=== PATIENT | female | born 1995 | race Hispanic/Latino ===

== ENCOUNTER 2017-03-12 14:30 | Emergency (ER) | payer MEDICAID, OTHER ==
[2017-03-12 15:46] LABS: Basophils % (Auto) 0.4 % (0.0-1.8); Eosinophils % (Auto) 3.3 % (0.0-4.3); Hemoglobin 13.4 gm/dl (10.1-14.3); Mean Corpuscular HGB Conc 34 % (30-34); Mean Corpuscular Hemoglobin 29 pg (28-32); Mean Corpuscular Volume 86 fl (79-97); Platelet Count 303 K/mm3 (140-440); Red Blood Count 4.64 M/mm3 (3.65-5.03); Red Cell Distribution Width 13.6 % (13.2-15.2); White Blood Count 10.3 K/mm3 (4.5-11.0)
[2017-03-12 16:03] LABS: Bilirubin,Urine NEG (Negative); Blood,Urine LG (Negative); Ketones,Urine NEG (Negative); Leukocyte Esterase,Urine SM (Negative); Mucus,Urine FEW /HPF; Nitrite,Urine NEG (Negative); Protein,Urine <15 mg/dL mg/dL (Negative); Urobilinogen,Urine < 2.0 mg/dL (<2.0)
[2017-03-12 16:49] LABS: Alanine Aminotransferase 8 units/L (7-56); Albumin/Globulin Ratio 1.3 %; Alkaline Phosphatase 82 units/L (35-129); Anion Gap 17 mmol/L; Blood Urea Nitrogen 7 mg/dL (7-17); Carbon Dioxide 25 mmol/L (22-30); Chloride 100.1 mmol/L (98-107); Sodium 138 mmol/L (137-145)
[2017-03-12 17:03] LABS: Glucose 84 mg/dL (65-100)
--- NOTE | 2017-03-12 20:53 | Ultrasound Report ---
FINAL REPORT PROCEDURE: US OB \T\lt; = 14 WEEKS FETUS TECHNIQUE: Real-time transabdominal sonography of the uterus, placenta, amniotic fluid, adnexa, and fetus was performed with image documentation. Measurements were obtained to determine age/size. M-mode Doppler was used to document heartbeat. CPT 23528 HISTORY: vaginal bleeding during COMPARISON: No prior studies are available for comparison. FINDINGS: CRL: 27.3 mm, which corresponds to a gestational age of: 9 weeks, 4 days. Yolk Sac: Normal. Embryonic Cardiac Activity: No cardiac activity is visualized Gestational Sac: Normal. Amniotic fluid: Normal. Cervix: Normal. Right Ovary: Normal. Left Ovary: Normal. Uterus and adnexa: Normal. IMPRESSION: Single intrauterine gestation corresponding to a mean gestational age of 9 weeks and 4 days. No cardiac activity is identified consistent with intrauterine demise.
--- NOTE | 2017-03-12 20:54 | Ultrasound Report ---
FINAL REPORT PROCEDURE: US OB TRANSVAGINAL TECHNIQUE: Real-time transvaginal sonography of the uterus, placenta, amniotic fluid, adnexa, and fetus was performed with image documentation. Measurements were obtained to determine age/size. M-mode Doppler was used to document heartbeat. CPT 19001 HISTORY: vaginal bleeding during COMPARISON: No prior studies are available for comparison. FINDINGS: CRL: 27.2mm, which corresponds to a gestational age of: 9weeks, 4 days. Yolk Sac: Normal. Embryonic Cardiac Activity: No cardiac activity is visualized Gestational Sac: Normal. Right Ovary: Normal. Left Ovary: Normal. IMPRESSION: Single intrauterine gestation is noted corresponding to 9 weeks and 4 days of gestational age. However there is no cardiac activity consistent with the intrauterine demise.
--- NOTE | 2017-03-12 21:03 | Emergency Department Report ---
ED Female HPI - General Chief complaint: Vaginal Bleeding Stated complaint: VAG BLEEDING/12WKS PREG Time Seen by Provider: 03/12/17 20:43 Source: patient, RN notes reviewed Mode of arrival: Ambulatory Limitations: No Limitations - History of Present Illness Initial comments: This is a 21-year-old female. She is previously unknown to me. She is 2, para 1. 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 Her complaint at that time was abdominal cramping, vaginal bleeding. The patient presents to the er with persistent abdominal cramping and vaginal bleeding. She reports one pad per hour. Minimal bleeding. No headache, neck pain, chest pain, shortness of breath, no irritative/obstructive urinary symptoms. No exacerbating or relieving factors. MD Complaint: vaginal bleeding, pelvic pain -: Gradual, days(s) Location: suprapubic Radiation: non-radiating Severity: mild Quality: cramping Consistency: intermittent Improves with: none Worsens with: none Are you Now?: Yes Associated Symptoms: vaginal discharge, abdominal pain. denies: nausea/vomiting , fever/chills - Related Data Sexually active: Yes Home Medications Medication Instructions Recorded Confirmed Last Taken Loratadine [Claritin] 10 mg PO DAILY PRN 11/26/15 11/29/15 11/24/15 09:00 1 Allergies Allergy/AdvReac Type Severity Reaction Status Date / Time No Known Allergies Allergy Verified 11/26/15 13:47 ED Review of Systems ROS: Stated complaint: VAG BLEEDING/12WKS PREG Other details as noted in HPI Constitutional: denies: fever, malaise Eyes: denies: vision change ENT: denies: epistaxis Respiratory: denies: cough Cardiovascular: denies: chest pain Gastrointestinal: denies: vomiting Genitourinary: abnormal menses. denies: dysuria Musculoskeletal: denies: myalgia Skin: denies: lesions Neurological: denies: weakness Psychiatric: anxiety ED Past Medical Hx - Past Medical History Hx Hypertension: No Hx Congestive Heart Failure: No Hx Diabetes: No Hx Deep Vein Thrombosis: No Hx Renal Disease: No Hx Sickle Cell Disease: No Hx Seizures: No Hx Asthma: No Hx COPD: No Hx HIV: No - Social History Smoking Status: Never Smoker Substance Use Type: None - Medications Home Medications: Home Medications Medication Instructions Recorded Confirmed Last Taken Type Loratadine [Claritin] 10 mg PO DAILY PRN 11/26/15 11/29/15 11/24/15 09:00 History 1 ED Physical Exam - General Limitations: No Limitations General appearance: alert, in no apparent distress - Head Head exam: Present: atraumatic, normocephalic - Eye Eye exam: Present: normal appearance, EOMI. Absent: nystagmus - ENT ENT exam: Present: normal exam, normal orophraynx, mucous membranes moist, normal external ear exam - Neck Neck exam: Present: normal inspection, full ROM. Absent: tenderness, meningismus - Respiratory Respiratory exam: Present: normal lung sounds bilaterally. Absent: respiratory distress, wheezes, rales, rhonchi, stridor, chest wall tenderness, accessory muscle use, decreased breath sounds, prolonged expiratory - Cardiovascular Cardiovascular Exam: Present: regular rate, normal rhythm, normal heart sounds. Absent: bradycardia, tachycardia, irregular rhythm, systolic murmur, diastolic murmur, rubs, gallop - GI/Abdominal GI/Abdominal exam: Present: soft, normal bowel sounds. Absent: distended, tenderness, guarding, rebound, rigid, pulsatile mass - Extremities Exam Extremities exam: Present: normal inspection, full ROM, normal capillary refill. Absent: tenderness, pedal edema, joint swelling, calf tenderness - Back Exam Back exam: Present: normal inspection, full ROM. Absent: tenderness, CVA tenderness (R), CVA tenderness (L), muscle spasm, paraspinal tenderness, vertebral tenderness - Neurological Exam Neurological exam: Present: alert, oriented X3, normal gait, other (Extraocular movements intact. Tongue midline. No facial droop. Facial sensation intact to light touch in the V1, V2, V3 distribution bilaterally. 5 and 5 strength in 4 extremities.. Sensation is intact to light touch in 4 extremities.). Absent : motor sensory deficit - Psychiatric Psychiatric exam: Present: normal affect, normal mood - Skin Skin exam: Present: warm, dry, intact, normal color. Absent: rash ED Course Vital Signs 03/12/17 03/12/17 03/12/17 14:45 20:25 20:49 Temperature 98.2 F 98.3 F Pulse Rate 96 H 81 Respiratory 20 16 Rate Blood Pressure 99/60 109/64 Blood Pressure 118/74 [Right] O2 Sat by Pulse 100 99 Oximetry 03/12/17 03/12/17 03/12/17 21:00 21:20 21:40 Temperature 97.9 F Pulse Rate 73 Respiratory 16 Rate Blood Pressure 121/63 107/64 Blood Pressure 111/62 [Right] O2 Sat by Pulse 98 98 99 Oximetry ED Medical Decision Making - Lab Data Result diagrams: 03/12/17 15:07 03/12/17 15:07 Vital Signs 03/12/17 03/12/17 03/12/17 14:45 20:25 20:49 Temperature 98.2 F 98.3 F Pulse Rate 96 H 81 Respiratory 20 16 Rate Blood Pressure 99/60 109/64 Blood Pressure 118/74 [Right] O2 Sat by Pulse 100 99 Oximetry 03/12/17 03/12/17 21:00 21:20 Temperature Pulse Rate Respiratory Rate Blood Pressure 121/63 107/64 Blood Pressure [Right] O2 Sat by Pulse 98 98 Oximetry Lab Results 03/12/17 03/12/17 03/12/17 Range/Units 14:52 15:07 15:07 WBC 10.3 (4.5-11.0) K/mm3 RBC 4.64 (3.65-5.03) M/mm3 Hgb 13.4 (10.1-14.3) gm/dl Hct 40.0 (30.3-42.9) % MCV 86 (79-97) fl MCH 29 (28-32) pg MCHC 34 (30-34) % RDW 13.6 (13.2-15.2) % Plt Count 303 (140-440) K/mm3 Lymph % (Auto) 18.6 (13.4-35.0) % [place] % (Auto) 4.5 (0.0-7.3) % Eos % (Auto) 3.3 (0.0-4.3) % Baso % (Auto) 0.4 (0.0-1.8) % Lymph # 1.9 (1.2-5.4) K/mm3 [place] # 0.5 (0.0-0.8) K/mm3 Eos # 0.3 (0.0-0.4) K/mm3 Baso # 0.0 (0.0-0.1) K/mm3 Seg Neutrophils % 73.2 H (40.0-70.0) % Seg Neutrophils # 7.6 (1.8-7.7) K/mm3 Sodium 138 (137-145) mmol/L Potassium 4.0 (3.6-5.0) mmol/L Chloride 100.1 (98-107) mmol/L Carbon Dioxide 25 (22-30) mmol/L Anion Gap 17 mmol/L BUN 7 (7-17) mg/dL Creatinine 0.5 L (0.7-1.2) mg/dL Estimated GFR > 60 ml/min BUN/Creatinine Ratio 14.00 % Glucose 84 (65-100) mg/dL Calcium 9.0 (8.4-10.2) mg/dL Total Bilirubin 0.20 (0.1-1.2) mg/dL AST 11 (5-40) units/L ALT 8 (7-56) units/L Alkaline Phosphatase 82 (35-129) units/L Total Protein 7.0 (6.3-8.2) g/dL Albumin 4.0 (3.9-5) g/dL Albumin/Globulin Ratio 1.3 % HCG, Qual (Negative) HCG, Quant (0-4) mIU/mL Urine Color Yellow (Yellow) Urine Turbidity Slightly-cloudy (Clear) Urine pH 7.0 (5.0-7.0) Ur Specific [place] 1.012 (1.003-1.030) Urine Protein <15 mg/dl (Negative) mg/dL Urine Glucose (UA) Neg (Negative) mg/dL Urine Ketones Neg (Negative) mg/dL Urine Blood Lg (Negative) Urine Nitrite Neg (Negative) Urine Bilirubin Neg (Negative) Urine Urobilinogen < 2.0 (<2.0) mg/dL Ur Leukocyte Esterase Sm (Negative) Urine WBC (Auto) 7.0 H (0.0-6.0) /HPF Urine RBC (Auto) 3.0 (0.0-6.0) /HPF U Epithel Cells (Auto) 8.0 (0-13.0) /HPF Urine Mucus Few /HPF Blood Type Antibody Screen 03/12/17 03/12/17 03/12/17 Range/Units 15:07 15:07 15:07 WBC (4.5-11.0) K/mm3 RBC (3.65-5.03) M/mm3 Hgb (10.1-14.3) gm/dl Hct (30.3-42.9) % MCV (79-97) fl MCH (28-32) pg MCHC (30-34) % RDW (13.2-15.2) % Plt Count (140-440) K/mm3 Lymph % (Auto) (13.4-35.0) % [place] % (Auto) (0.0-7.3) % Eos % (Auto) (0.0-4.3) % Baso % (Auto) (0.0-1.8) % Lymph # (1.2-5.4) K/mm3 [place] # (0.0-0.8) K/mm3 Eos # (0.0-0.4) K/mm3 Baso # (0.0-0.1) K/mm3 Seg Neutrophils % (40.0-70.0) % Seg Neutrophils # (1.8-7.7) K/mm3 Sodium (137-145) mmol/L Potassium (3.6-5.0) mmol/L Chloride (98-107) mmol/L Carbon Dioxide (22-30) mmol/L Anion Gap mmol/L BUN (7-17) mg/dL Creatinine (0.7-1.2) mg/dL Estimated GFR ml/min BUN/Creatinine Ratio % Glucose (65-100) mg/dL Calcium (8.4-10.2) mg/dL Total Bilirubin (0.1-1.2) mg/dL AST (5-40) units/L ALT (7-56) units/L Alkaline Phosphatase (35-129) units/L Total Protein (6.3-8.2) g/dL Albumin (3.9-5) g/dL Albumin/Globulin Ratio % HCG, Qual Positive (Negative) HCG, Quant 2663 H (0-4) mIU/mL Urine Color (Yellow) Urine Turbidity (Clear) Urine pH (5.0-7.0) Ur Specific [place] (1.003-1.030) Urine Protein (Negative) mg/dL Urine Glucose (UA) (Negative) mg/dL Urine Ketones (Negative) mg/dL Urine Blood (Negative) Urine Nitrite (Negative) Urine Bilirubin (Negative) Urine Urobilinogen (<2.0) mg/dL Ur Leukocyte Esterase (Negative) Urine WBC (Auto) (0.0-6.0) /HPF Urine RBC (Auto) (0.0-6.0) /HPF U Epithel Cells (Auto) (0-13.0) /HPF Urine Mucus /HPF Blood Type A POSITIVE Antibody Screen Negative - Radiology Data Radiology results: report reviewed, image reviewed Obstetrics ultrasound demonstrates intrauterine , with no cardiac activity, consistent with intrauterine demise. - Medical Decision Making Differential diagnosis: Miscarriage, demise Assessment and plan: 21-year-old female with a reported history of outpatient ultrasound at another hospital that demonstrated demise. She presents to the ER with minimal vaginal bleeding. She declined a pelvic examination as she had one at another hospital. Hemoglobin and hematocrit appropriate, urinalysis is not consistent with UTI; patient has no irritative or obstructive urinary symptoms. Patient is suitable to be managed expectantly, and she'll be discharged at this time. She is Rh+. Critical care attestation.: If time is entered above; I have spent that time in minutes in the direct care of this critically ill patient, excluding procedure time. ED Disposition Clinical Impression: Miscarriage Disposition: DC-01 TO HOME OR SELFCARE Is pt being admited?: No Does the pt Need Aspirin: No Condition: Good Instructions: Spontaneous Miscarriage (ED) Additional Instructions: As we discussed, symptoms that the patient is experiencing are consistent with miscarriage. Expect bleeding, cramping, discomfort, passage of tissue, passage of clots. Follow up with your FINANCIAL INTERN doctor within the next 3-5 days. Avoid sex, heavy lifting, strenuous physical activity. Return to the ER right away with new pain, worsened pain, migration of pain, fevers, chills, confusion, intractable nausea or vomiting, inability to tolerate liquid feeds. Referrals: PRIMARY CARE, [Primary Care Provider] - 3-5 Days [facility] [Provider Group] - 3-5 Days
[2017-03-12 21:41] VITALS: BP 111/62
== END 2017-03-12 21:40 | disposition home or self-care (01) ==
LOC: ED 14:30
DX: O03.9 Complete or unspecified spontaneous abortion without complication (principal)
CPT/HCPCS: 36415; 76801; 76817; 80053; 81001; 84702; 84703; 85025; 86850; 86900; 86901

== ENCOUNTER 2017-11-25 17:47 | Outpatient (CLI) | payer MEDICAID ==
[2017-11-25] MEDS ORDERED: FIORICET PO PRN (18:45)
[2017-11-25 19:01] LABS: Bilirubin,Urine NEG (Negative); Blood,Urine NEG (Negative); Color,Urine Straw (Yellow); Protein,Urine <15 mg/dL mg/dL (Negative); Urobilinogen,Urine < 2.0 mg/dL (<2.0)
[2017-11-25 19:08] VITALS: BP 113/64
[2017-11-25 19:42] LABS: Hematocrit 32.4 % (30.3-42.9); Mean Corpuscular HGB Conc 34 % (30-34); Mean Corpuscular Hemoglobin 29 pg (28-32); Mean Corpuscular Volume 84 fl (79-97); Platelet Count 286 K/mm3 (140-440); Red Blood Count 3.87 M/mm3 (3.65-5.03); Red Cell Distribution Width 12.8 % (13.2-15.2)
[2017-11-25 19:59] LABS: Alanine Aminotransferase 8 units/L (7-56); Uric Acid 4.6 mg/dL (3.5-7.6)
== END 2017-11-25 20:43 | disposition home or self-care (01) ==
LOC: TRG 17:47
PROVIDERS: ATTEND Obstetrics & Gynecology
DX: O47.03 False labor before 37 completed weeks of gestation, third trimester (principal); Z3A.32 32 weeks gestation of pregnancy
CPT/HCPCS: 36415; 81001; 82565; 83615; 84450; 84460; 84550; 85027

== ENCOUNTER 2018-01-05 23:04 | Inpatient (IN) | payer MEDICAID ==
[2018-01-05] MEDS ORDERED: LACTATED RINGERS 1,000 ML IV ONE (23:22)
[2018-01-06 00:08] LABS: Lipase 19 units/L (13-60)
[2018-01-06] MEDS ORDERED: ZOFRAN IV ONE ×2 (00:51→15:05)
[2018-01-06 01:04] LABS: Bacteria,Urine 1+ /HPF (Negative); Bilirubin,Urine NEG (Negative); Blood,Urine NEG (Negative); Color,Urine Yellow (Yellow); Mucus,Urine FEW /HPF; Urobilinogen,Urine < 2.0 mg/dL (<2.0)
[2018-01-06 01:14] LABS: Hemoglobin 11.6 gm/dl (10.1-14.3); Mean Corpuscular HGB Conc 31 % (30-34); Mean Corpuscular Hemoglobin 26 pg (28-32); Mean Corpuscular Volume 84 fl (79-97); Platelet Count 207 K/mm3 (140-440); Red Cell Distribution Width 15.1 % (13.2-15.2)
[2018-01-06 01:14] LABS: Protein,Urine >500 mg/dL (Negative)
[2018-01-06 01:24] LABS: Alanine Aminotransferase 55 units/L (7-56); Uric Acid 7.3 mg/dL (3.5-7.6)
[2018-01-06] MEDS ORDERED: ePHEDrine SULFATE IV PRN ×2 (02:16→07:30)
[2018-01-06] MEDS ORDERED: BRETHINE IVP PRN (02:16)
[2018-01-06] MEDS ORDERED: XYLOCAINE 2% INFILTRATI ONE (02:16)
[2018-01-06] MEDS ORDERED: MINERAL OIL PO PRN (02:16)
[2018-01-06] MEDS ORDERED: SUBLIMAZE IV PRN (02:16)
[2018-01-06] MEDS ORDERED: MAGNESIUM SULFATE 4GM/100ML 4 GM/100 ML BAG IV ONE ×2 (02:18→02:28)
[2018-01-06] MEDS ORDERED: APRESOLINE IV PRN (02:18)
--- NOTE | 2018-01-06 02:27 | History and Physical Report ---
History of Present Illness Date of examination: 01/06/18 Chief complaint: sudden onset of epigastric pain w/ n&v History of present illness: EDC Calculations by LMP: 01/18/2018 Past History : 3 Term Births: 1 Premature Births: 0 Living Children: 1 Para: 1 Spont. Ab: 1 # 1 Delivery date: 11/29/2015 Weeks Gestation: 41 Delivery type: Vaginal Anesthesia type: epidural Delivery location: [facility] Sex: female weight: 6.81 Comments: none # 2 Delivery date: 2016 Delivery type: SAB Comments: denies Past Medical History: Reviewed history from 03/27/2015 and no changes required: Headaches(Migraines) Past Surgical History: Reviewed history from 03/27/2015 and no changes required: negative Past Medical History Anesthesia Complications: negative Anemia: negative Autoimmune Disorder: negative Bleeding Disorder: negative Blood Transfusions: negative Breast Disease: negative Diabetes: negative Heart Disease: negative Hypertension: negative Hepatitis/Liver Disease: negative Kidney Disease/UTI: negative Neurologic/Epilepsy/Migraines: positive Phlebitis/Varicosities: negative Psychiatric: negative Pulmonary Disease/Asthma: negative Thyroid Disease: negative Hospitalizations: negative Surgery (Non-equity manager): negative Abnormal PAP: negative ROSA Exposure: negative Infertility: negative Uterine Anomaly: negative Uterine Surgery (not C/S): negative Other Gynecologic Problems: negative Social Hx: Patient is single Smoking History: Patient has never smoked. Infection History Hx of STD: none HIV Risk Eval: no Hepatitis B Risk Eval: low risk Personal hx. of genital herpes: no Partner hx. of genital herpes: no Rash, Viral, or Febrile illness since last LMP? no Varicella/Chicken Pox Status: Immunized TB Risk: no Genetic History Congenital Heart Defect: Mom: no Dad: no Chiquita Disease: Mom: no Dad: no Thalassemia Mom: no Dad: no Neural Tube Defect Mom: no Dad: no Down's Syndrome Mom: no Dad: no Roldan-Sachs Mom: no Dad: no Sickle Cell Disease/Trait Mom: no Dad: no Hemophilia Mom: no Dad: no Muscular Dystrophy Mom: no Dad: no Cystic Fibrosis Mom: no Dad: no Gudelia Chorea Mom: no Dad: no Mental Retardation Mom: no Dad: no Fragile X Mom: no Dad: no Other Genetic/Chromosomal Disorder Mom: no Dad: no Child w/other defect Mom: no Dad: no Enviromental Exposures Enviromental Exposures Reviewed Xray Exposure: no Medication, drug, or alcohol use since LMP: no Chemical/Other Exposure: no Exposure to Cat Liter: no Hx of Parvovirus (Fifth Disease): no Occupational Exposure to Children: none Active Medications (reviewed today): None Current Allergies (reviewed today): No known allergies Past History Past Medical History: other (see HPI) Past Surgical History: other (see HPI) DISHWASHER BUSSER History: other (see HPI) Family/Genetic History: other (see HPI) - Obstetrical History Expected Date of Delivery: 01/18/18 Actual Gestation: 38 Week(s) 2 Day(s) : 3 Para: 1 Hx # Term Pregnancies: 1 Number of Pregnancies: 0 Spontaneous Abortions: 1 Induced : 0 Number of Living Children: 1 Medications and Allergies Allergies Allergy/AdvReac Type Severity Reaction Status Date / Time No Known Allergies Allergy Verified 11/26/15 13:47 Home Medications Medication Instructions Recorded Confirmed Last Taken Type Loratadine [Claritin] 10 mg PO DAILY PRN 11/26/15 11/25/17 11/24/15 09:00 History 1 Review of Systems All systems: negative Gastrointestinal: abdominal pain, nausea, vomiting Neurological: headaches - Vital Signs Vital signs: Vital Signs Pulse BP 86 141/87 01/05/18 23:48 01/05/18 23:48 Temp Pulse Resp BP Pulse Ox 99.0 F 78 18 146/95 98 01/05/18 23:53 01/06/18 02:23 01/05/18 23:53 01/06/18 02:19 01/06/18 02:23 - Physical Exam Breasts: Positive: normal Cardiovascular: Regular rate Lungs: Positive: Clear to auscultation, Normal air movement Abdomen: Positive: normal appearance, soft Genitourinary (Female): Positive: normal external genitalia, normal perenium Vagina: Positive: normal moisture Anus/Rectum: Positive: normal perianal skin Extremities: Positive: normal Deep Tendon Reflex Grade: Normal but brisk +3 - Obstetrical FHR: category 1 Uterine Contraction Monitor Mode: External Cervical Dilatation: 1 Cervical Effacement Percentage: 60 station: -2 Uterine Contraction Pattern: Irregular Uterine Tone Measurement Phase: Contraction Uterine Contraction Intensity: Mild Results Result Diagrams: 01/05/18 23:35 01/05/18 23:35 Abnormal lab results 01/05/18 01/05/18 01/05/18 Range/Units 23:35 23:35 23:35 WBC 18.8 H (4.5-11.0) K/mm3 MCH 26 L (28-32) pg Creatinine 0.5 L (0.7-1.2) mg/dL AST 122 H (5-40) units/L Lactate Dehydrogenase 514 H (91-180) units/L Urine pH (5.0-7.0) 01/06/18 Range/Units 00:00 WBC (4.5-11.0) K/mm3 MCH (28-32) pg Creatinine (0.7-1.2) mg/dL AST (5-40) units/L Lactate Dehydrogenase (91-180) units/L Urine pH 8.0 H (5.0-7.0) All other labs normal. from records: Patient: ALBERTO ALATORRE ID: [id number] Note: All result statuses are Final unless otherwise noted. Patient Note: PATIENT NOT FASTING Tests: (1) Chlamydia/GC Amplification (544314) Order Note: Clinical Information: SRC:UR SRC:VR Chlamydia trachomatis, RAMON Negative Negative *1 Neisseria gonorrhoeae, RAMON Negative Negative *2 Tests: (2) RPR, Rfx Qn RPR/Confirm TP (114544) RPR Non Reactive Non Reactive *3 Tests: (3) Panel 324320 (007869) HIV Screen 4th Generation wRfx Non Reactive Non Reactive *4 Tests: (4) Strep Gp B RAMON (274428) ! Strep Gp B RAMON Negative Negative *5 Tests: (1) Profile I (292285) Order Note: Clinical Information: SRC:UR HBsAg Screen Negative Negative *1 RPR Non Reactive Non Reactive *2 Rubella Antibodies, IgG 1.14 index Immune >0.99 *3 Non-immune <0.90 Equivocal 0.90 - 0.99 Immune >0.99 ABO Grouping A *4 Rh Factor Positive *5 Please note: Prior records for this patient's ABO / Rh type are not available for additional verification. Antibody Screen Negative Negative *6 WBC 10.7 x10E3/uL 3.4-10.8 *7 RBC 4.07 x10E6/uL 3.77-5.28 *8 Hemoglobin 12.2 g/dL 11.1-15.9 *9 Hematocrit 36.0 % 34.0-46.6 *10 MCV 89 fL 79-97 *11 MCH 30.0 pg 26.6-33.0 *12 MCHC 33.9 g/dL 31.5-35.7 *13 RDW 13.8 % 12.3-15.4 *14 Platelets 302 x10E3/uL 150-379 *15 Neutrophils 74 % Not Estab. *16 Lymphs 20 % Not Estab. *17 Monocytes 5 % Not Estab. *18 Eos 1 % Not Estab. *19 Basos 0 % Not Estab. *20 ! Immature Cells <No Reported Value> *21 Neutrophils (Absolute) [H] 7.9 x10E3/uL 1.4-7.0 *22 Lymphs (Absolute) 2.1 x10E3/uL 0.7-3.1 *23 Monocytes(Absolute) 0.5 x10E3/uL 0.1-0.9 *24 Eos (Absolute) 0.2 x10E3/uL 0.0-0.4 *25 Baso (Absolute) 0.0 x10E3/uL 0.0-0.2 *26 ! Immature Granulocytes 0 % Not Estab. *27 ! Immature Grans (Abs) 0.0 x10E3/uL 0.0-0.1 *28 ! NRBC <No Reported Value> *29 Hematology Comments: <No Reported Value> *30 Tests: (2) Cystic Fibrosis Profile (530883) ! CF, Screen Comment: *31 RESULTS: Negative for 32 mutations analyzed INTERPRETATION: This individual is negative for the mutations analyzed. This negative result may need further interpretation depending on the clinical indication. This result reduces but does not eliminate the risk to be a CF carrier. COMMENTS: The detection rate varies with ethnicity and is listed below. The presence of an undetected mutation in the CF gene cannot be ruled out. In the absence of family history, the remaining risk that a person with a negative result could have at least one CF mutation is listed in the table. If there is a family history of CF, these risk figures do not apply. As detailed information regarding this individual's family history would permit a more accurate assessment of this individual's risk to be a carrier of cystic fibrosis, please contact [facility] at for a revised report. Mutation Detection Detection rates are based on mutation Rates among Ethnic frequencies in patients affected with Groups cystic fibrosis. Among individuals with an atypical or mild presentation (e.g. congenital absence of the vas deferens, pancreatitis) detection rates may vary from those provided here: Carrier risk reduction when no family history Detection Ethnicity Rate Ashkenazi 08/21 to 97% Tenriism 08/20 to 90% (non-) -Bhutanese to 69% 46 to 73% to 55% This interpretation is based on the clinical and family relationship information provided and the current understanding of the molecular genetics of this condition. MUTATIONS ANALYZED: G85E V520F W3141K 2183AA to G R117H G542X O9786C 2184delA R334W S549N 394delTT 2789+5G to A R347H S549R 621+1G to T 3120+1G to A R347P G551D 711+1G to T 3659delC A455E R553X 1078delT 3849+10kbC to T [id number] R560T 1717-1G to A 3876delA LdouoG906 J5972G 1898+1G to A 3905insT METHODS/LIMITATIONS: DNA is isolated from the sample and tested for the 32 CF mutations on the [place] Array Platform ([employer]). Regions of the CFTR gene are amplified enzymatically and subjected to a solution-phase multiplex allele-specific primer extension with subsequent hybridization to a bead array and fluorescence detection. Polymorphisms F508C, I506V and I507V are included in this panel to rule out false positive [id number] homozygotes. Reflex testing of 5T is included in the panel for R117H interpretation. False positive or negative results may occur for reasons that include genetic variants, blood transfusions, bone marrow transplantation, erroneous representation of family relationships or contamination of a sample with maternal cells. REFERENCES: 1. Updates on Carrier Screening for Cystic Fibrosis. (2011) Am J Ob Gynecol 117(4):6773-2855 2. To et al. (2004) [facility] Med 6:387-91 3. Ahsan et al. (2002) [facility] Med 4:379-391 4. Preconception and carrier screening for cystic fibrosis: (2001)ACOG.ACMG publication Results Released By: Tulio Pepe, Ph.D. Telephone Operator Chief Report Released By: Tulio Pepe, Ph.D. Telephone Operator Chief ! Comment: SPRCS *32 The assay provides information intended to be used for carrier screening in adults of reproductive age, as an aid in screening, and as a confirmatory test for another medically established diagnosis in newborns and children. The test is not indicated for use in diagnostic testing, pre-implantation screening, or for any stand-alone diagnostic purposes without confirmation by another medically established diagnostic product or procedure. Tests: (3) HB Solu + Rflx [facility] (471551) Hemoglobin (Hgb) Solubility Negative Negative *33 Tests: (4) Panel 035615 (869475) HIV Screen 4th Generation wRfx Non Reactive Non Reactive *34 Tests: (5) HCV Ab w/Rflx to Verification (524765) ! HCV Ab <0.1 s/co ratio 0.0-0.9 *35 Assessment and Plan 22y/o @ 38+2 weeks arrived w/ c/o sudden onset upper abdominal pain w/ n& v and now headache rated 6/10. b/p's mostly 130-140's/80-90's with is increased over her baseline b/p in the office (range 110's-120's/60-80's.) pre-e labs revealed proteinuria >500, AST 122, ALT 55. Dr. Dickerson consulted and plan to admit for pre-e, will proceed with IOL. GBS neg, Plan of care reviewed with patient and s/o at length. All questions addressed. - Patient Problems (1) Pre-eclampsia Current Visit: Yes Status: Acute Qualifiers: Trimester: third trimester Qualified Code(s): O14.93 - Unspecified pre- eclampsia, third trimester (2) 38 weeks gestation of Current Visit: Yes Status: Acute (3) Epigastric pain Current Visit: Yes Status: Acute (4) Elevated LFTs Current Visit: Yes Status: Acute
[2018-01-06] MEDS ORDERED: MAGNESIUM SULFATE 40GM/1000ML 40 GM/1,000 ML BAG IV SCH (03:00)
[2018-01-06] MEDS ORDERED: PITOCin/NS 30 UNIT/500ML 30 UNITS/500 ML BAG IV SCH ×2 (03:00→07:00)
[2018-01-06] MEDS ORDERED: PITOCin/NS 20 UNIT/1000ML DRIP 20 UNITS/1,000 ML BAG IV SCH (03:00)
[2018-01-06] MEDS ORDERED: LACTATED RINGERS 1,000 ML IV SCH (03:00)
[2018-01-06] MEDS: LACTATED RINGERS 1,000 ML IV SCH ×2 (03:11→13:16)
[2018-01-06] MEDS: STADOL IV PRN ×2 (03:13→08:08)
--- NOTE | 2018-01-06 05:48 | Progress Note ---
Assessment and Plan - Patient Problems (1) Active labor Onset Date: ~01/06/18 Current Visit: Yes Status: Acute Plan to address problem: Pt c/o increased pain with ctx Req Epidural. Bolus started. SVE 3,70,-2 chg from admission. AROM clear fluid. Internals placed. CTX q 3-4, 45sec,mild-mod FHR Cat 1. Will re-eval after epidural. (2) Pre-eclampsia Onset Date: ~01/06/18 Current Visit: Yes Status: Acute Qualifiers: Trimester: third trimester Qualified Code(s): O14.93 - Unspecified pre- eclampsia, third trimester Plan to address problem: MGSO4 @ 1gm/hr BP 150/80 Pt c/o RENTERIA, will try relieving measures: lights out, cool cloth.DTR brisk, no clonus Denies blurred vision, pt states upper abdomen pain is better.Will continue close observation. Subjective - Subjective Date of service: 01/06/18 (AM assessment) Patient reports: movement normal, other (pt c/o return of RENTERIA) Objective - Vital Signs Vital Signs: Vital Signs - 12hr 01/05/18 01/05/18 01/06/18 23:48 23:53 00:03 Temperature 99.0 F Pulse Rate 86 86 83 Respiratory 18 Rate Blood Pressure 141/87 131/84 Blood Pressure 141/87 [Left] O2 Sat by Pulse Oximetry 01/06/18 01/06/18 01/06/18 00:18 00:34 00:48 Temperature Pulse Rate 82 86 109 H Respiratory Rate Blood Pressure 132/81 139/77 143/87 Blood Pressure [Left] O2 Sat by Pulse Oximetry 01/06/18 01/06/18 01/06/18 00:58 01:03 01:04 Temperature Pulse Rate 78 84 83 Respiratory Rate Blood Pressure 162/99 Blood Pressure [Left] O2 Sat by Pulse 99 98 Oximetry 01/06/18 01/06/18 01/06/18 01:07 01:08 01:13 Temperature Pulse Rate 80 80 78 Respiratory Rate Blood Pressure Blood Pressure [Left] O2 Sat by Pulse 94 94 99 Oximetry 01/06/18 01/06/18 01/06/18 01:18 01:23 01:28 Temperature Pulse Rate 75 86 82 Respiratory Rate Blood Pressure 140/86 Blood Pressure [Left] O2 Sat by Pulse 98 98 98 Oximetry 01/06/18 01/06/18 01/06/18 01:33 01:34 01:38 Temperature Pulse Rate 84 77 81 Respiratory Rate Blood Pressure 133/81 Blood Pressure [Left] O2 Sat by Pulse 99 98 Oximetry 01/06/18 01/06/18 01/06/18 01:43 01:48 01:53 Temperature Pulse Rate 87 79 86 Respiratory Rate Blood Pressure 130/76 Blood Pressure [Left] O2 Sat by Pulse 98 98 99 Oximetry 01/06/18 01/06/18 01/06/18 01:58 02:03 02:04 Temperature Pulse Rate 91 H 83 78 Respiratory Rate Blood Pressure 135/82 Blood Pressure [Left] O2 Sat by Pulse 98 99 Oximetry 01/06/18 01/06/18 01/06/18 02:08 02:13 02:18 Temperature Pulse Rate 85 89 79 Respiratory Rate Blood Pressure Blood Pressure [Left] O2 Sat by Pulse 98 99 98 Oximetry 01/06/18 01/06/18 01/06/18 02:19 02:23 02:40 Temperature Pulse Rate 85 78 90 Respiratory Rate Blood Pressure 146/95 159/91 Blood Pressure [Left] O2 Sat by Pulse 98 Oximetry 01/06/18 01/06/18 01/06/18 03:13 03:15 03:19 Temperature Pulse Rate 100 H 114 H Respiratory 18 Rate Blood Pressure 142/100 136/89 Blood Pressure [Left] O2 Sat by Pulse Oximetry 01/06/18 01/06/18 01/06/18 03:24 03:29 03:30 Temperature Pulse Rate 103 H 120 H 121 H Respiratory Rate Blood Pressure 131/77 130/80 Blood Pressure [Left] O2 Sat by Pulse 96 93 Oximetry 01/06/18 01/06/18 01/06/18 03:34 03:35 03:36 Temperature Pulse Rate 124 H 121 H 118 H Respiratory Rate Blood Pressure 135/81 Blood Pressure [Left] O2 Sat by Pulse 94 94 Oximetry 01/06/18 01/06/18 01/06/18 03:39 03:41 03:44 Temperature Pulse Rate 119 H 113 H 105 H Respiratory Rate Blood Pressure 132/74 Blood Pressure [Left] O2 Sat by Pulse 95 93 94 Oximetry 01/06/18 01/06/18 01/06/18 03:45 03:49 03:50 Temperature Pulse Rate 106 H 101 H 101 H Respiratory Rate Blood Pressure 130/70 127/66 Blood Pressure [Left] O2 Sat by Pulse 93 Oximetry 01/06/18 01/06/18 01/06/18 03:52 03:54 03:58 Temperature Pulse Rate 107 H 105 H 99 H Respiratory Rate Blood Pressure Blood Pressure [Left] O2 Sat by Pulse 94 94 94 Oximetry 01/06/18 01/06/18 01/06/18 03:59 04:01 04:03 Temperature Pulse Rate 116 H 112 H 108 H Respiratory Rate Blood Pressure 123/66 Blood Pressure [Left] O2 Sat by Pulse 95 94 Oximetry 01/06/18 01/06/18 01/06/18 04:04 04:09 04:13 Temperature Pulse Rate 111 H 107 H 108 H Respiratory Rate Blood Pressure 119/70 Blood Pressure [Left] O2 Sat by Pulse 95 94 Oximetry 01/06/18 01/06/18 01/06/18 04:14 04:15 04:19 Temperature Pulse Rate 115 H 113 H 107 H Respiratory Rate Blood Pressure Blood Pressure [Left] O2 Sat by Pulse 95 94 94 Oximetry 01/06/18 01/06/18 01/06/18 04:20 04:22 04:24 Temperature Pulse Rate 106 H 105 H 102 H Respiratory Rate Blood Pressure 119/73 Blood Pressure [Left] O2 Sat by Pulse 94 95 Oximetry 01/06/18 01/06/18 01/06/18 04:25 04:29 04:31 Temperature Pulse Rate 110 H 106 H 109 H Respiratory Rate Blood Pressure 110/58 Blood Pressure [Left] O2 Sat by Pulse 94 95 94 Oximetry 01/06/18 01/06/18 01/06/18 04:34 04:39 04:41 Temperature Pulse Rate 101 H 102 H 108 H Respiratory Rate Blood Pressure 115/66 Blood Pressure [Left] O2 Sat by Pulse 96 95 Oximetry 01/06/18 01/06/18 01/06/18 04:44 04:49 04:53 Temperature Pulse Rate 101 H 109 H 104 H Respiratory Rate Blood Pressure 119/73 Blood Pressure [Left] O2 Sat by Pulse 94 95 Oximetry 01/06/18 01/06/18 01/06/18 04:54 04:59 05:02 Temperature Pulse Rate 105 H 116 H 103 H Respiratory Rate Blood Pressure 126/75 Blood Pressure [Left] O2 Sat by Pulse 99 98 Oximetry 01/06/18 01/06/18 01/06/18 05:04 05:09 05:13 Temperature Pulse Rate 109 H 118 H 104 H Respiratory Rate Blood Pressure 128/77 Blood Pressure [Left] O2 Sat by Pulse 99 99 Oximetry 01/06/18 01/06/18 01/06/18 05:14 05:19 05:21 Temperature Pulse Rate 112 H 105 H 118 H Respiratory Rate Blood Pressure 124/80 Blood Pressure [Left] O2 Sat by Pulse 99 99 Oximetry 01/06/18 01/06/18 01/06/18 05:24 05:29 05:34 Temperature Pulse Rate 105 H 103 H 114 H Respiratory Rate Blood Pressure 126/80 Blood Pressure [Left] O2 Sat by Pulse 98 98 98 Oximetry 01/06/18 01/06/18 01/06/18 05:39 05:42 05:44 Temperature Pulse Rate 121 H 122 H 121 H Respiratory Rate Blood Pressure 152/81 Blood Pressure [Left] O2 Sat by Pulse 99 99 Oximetry - Exam Breasts: deferred Cardiovascular: Regular rate Lungs: Clear to auscultation Abdomen: Present: normal appearance, soft. Absent: distention, tenderness Uterus: Present: normal, tenderness (epigaastric) FHR: auscultation normal, category 1 Uterine Contraction Monitor Mode: Internal Cervical Dilatation: 3 (AROM clear fluid) Cervical Effacement Percentage: 70 (ISE/IUPC) station: -2 Uterine Contraction Pattern: Regular Uterine Tone Measurement Phase: Resting Uterine Contraction Intensity: Moderate Extremities: edema Deep Tendon Reflex Grade: Normal but brisk +3 - Labs Labs: Abnormal Labs 01/05/18 01/05/18 01/05/18 23:35 23:35 23:35 WBC 18.8 H MCH 26 L Creatinine 0.5 L AST 122 H Lactate Dehydrogenase 514 H Urine pH 01/06/18 00:00 WBC MCH Creatinine AST Lactate Dehydrogenase Urine pH 8.0 H Laboratory Results - last 24 hr 01/05/18 01/05/18 01/05/18 23:35 23:35 23:35 WBC 18.8 H RBC 4.40 Hgb 11.6 Hct 37.0 MCV 84 MCH 26 L MCHC 31 RDW 15.1 Plt Count 207 Creatinine 0.5 L Estimated GFR > 60 Uric Acid 7.3 AST 122 H ALT 55 Lactate Dehydrogenase Amylase 46 Lipase 19 Urine Color Urine Turbidity Urine pH Ur Specific [place] Urine Protein Urine Glucose (UA) Urine Ketones Urine Blood Urine Nitrite Urine Bilirubin Urine Urobilinogen Ur Leukocyte Esterase Urine WBC (Auto) Urine RBC (Auto) U Epithel Cells (Auto) Urine Bacteria (Auto) Urine Mucus 01/05/18 01/06/18 23:35 00:00 WBC RBC Hgb Hct MCV MCH MCHC RDW Plt Count Creatinine Estimated GFR Uric Acid AST ALT Lactate Dehydrogenase 514 H Amylase Lipase Urine Color Yellow Urine Turbidity Clear Urine pH 8.0 H Ur Specific [place] 1.017 Urine Protein >500 Urine Glucose (UA) Neg Urine Ketones Neg Urine Blood Neg Urine Nitrite Neg Urine Bilirubin Neg Urine Urobilinogen < 2.0 Ur Leukocyte Esterase Mod Urine WBC (Auto) 4.0 Urine RBC (Auto) 5.0 U Epithel Cells (Auto) 9.0 Urine Bacteria (Auto) 1+ Urine Mucus Few
--- NOTE | 2018-01-06 07:28 | Anesthesia Consultation ---
Anesthesia Consult and Med Hx Date of service: 01/06/18 - Airway Anesthetic Teeth Evaluation: Good ROM Head & Neck: Adequate Mental/Hyoid Distance: Adequate Mallampati Class: Class II Intubation Access Assessment: Probably Good - Pre-Operative Health Status ASA Pre-Surgery Classification: ASA2 Proposed Anesthetic Plan: Epidural, Spinal - Pulmonary Hx Asthma: No COPD: No Hx Pneumonia: No - Cardiovascular System Hx Hypertension: No - Central Nervous System Hx Seizures: No Hx Psychiatric Problems: No - Endocrine Hx Renal Disease: No Hx End Stage Renal Disease: No Hx Hypothyroidism: No Hx Hyperthyroidism: No - Hematic Hx Anemia: No Hx Sickle Cell Disease: No - Other Systems Hx Alcohol Use: No
[2018-01-06] MEDS ORDERED: NARCAN 2 MG/2 ML IV PRN (07:30)
[2018-01-06] MEDS: fentaNYL-BUPIV 2 MCG/ML-0.125% 200 MCG/100 ML BAG EPIDURAL SCH ×2 (08:12→15:08)
[2018-01-06] MEDS ORDERED: XYLOCAINE MPF 2% ONE (11:55)
--- NOTE | 2018-01-06 15:01 | Progress Note ---
Assessment and Plan pt resting C/O some right side pain but much improved SVE 7-8,90,0 Pit @ 4mu Anticipate delivery. - Patient Problems (1) Active labor Onset Date: ~01/06/18 Current Visit: Yes Status: Acute (2) Pre-eclampsia Onset Date: ~01/06/18 Current Visit: Yes Status: Acute Qualifiers: Trimester: third trimester Qualified Code(s): O14.93 - Unspecified pre- eclampsia, third trimester Plan to address problem: BP 130-120/80s Pt denies RENTERIA, blurred vision, chest pain. Magsulfate cont. @ 1gm/ hr MAG level due @ 1500. Cont. monitoring. Subjective - Subjective Date of service: 01/06/18 (epidural replaced; pt states she is more comfortable) Patient reports: movement normal, other (pt c/o return of RENTERIA) Objective - Vital Signs Vital Signs: Vital Signs - 12hr 01/06/18 01/06/18 01/06/18 03:13 03:15 03:19 Temperature Pulse Rate 100 H 114 H Respiratory 18 Rate Blood Pressure 142/100 136/89 Blood Pressure [Left] O2 Sat by Pulse Oximetry 01/06/18 01/06/18 01/06/18 03:24 03:29 03:30 Temperature Pulse Rate 103 H 120 H 121 H Respiratory Rate Blood Pressure 131/77 130/80 Blood Pressure [Left] O2 Sat by Pulse 96 93 Oximetry 01/06/18 01/06/18 01/06/18 03:34 03:35 03:36 Temperature Pulse Rate 124 H 121 H 118 H Respiratory Rate Blood Pressure 135/81 Blood Pressure [Left] O2 Sat by Pulse 94 94 Oximetry 01/06/18 01/06/18 01/06/18 03:39 03:41 03:44 Temperature Pulse Rate 119 H 113 H 105 H Respiratory Rate Blood Pressure 132/74 Blood Pressure [Left] O2 Sat by Pulse 95 93 94 Oximetry 01/06/18 01/06/18 01/06/18 03:45 03:49 03:50 Temperature Pulse Rate 106 H 101 H 101 H Respiratory Rate Blood Pressure 130/70 127/66 Blood Pressure [Left] O2 Sat by Pulse 93 Oximetry 01/06/18 01/06/18 01/06/18 03:52 03:54 03:58 Temperature Pulse Rate 107 H 105 H 99 H Respiratory Rate Blood Pressure Blood Pressure [Left] O2 Sat by Pulse 94 94 94 Oximetry 01/06/18 01/06/18 01/06/18 03:59 04:01 04:03 Temperature Pulse Rate 116 H 112 H 108 H Respiratory Rate Blood Pressure 123/66 Blood Pressure [Left] O2 Sat by Pulse 95 94 Oximetry 01/06/18 01/06/18 01/06/18 04:04 04:09 04:13 Temperature Pulse Rate 111 H 107 H 108 H Respiratory Rate Blood Pressure 119/70 Blood Pressure [Left] O2 Sat by Pulse 95 94 Oximetry 01/06/18 01/06/18 01/06/18 04:14 04:15 04:19 Temperature Pulse Rate 115 H 113 H 107 H Respiratory Rate Blood Pressure Blood Pressure [Left] O2 Sat by Pulse 95 94 94 Oximetry 01/06/18 01/06/18 01/06/18 04:20 04:22 04:24 Temperature Pulse Rate 106 H 105 H 102 H Respiratory Rate Blood Pressure 119/73 Blood Pressure [Left] O2 Sat by Pulse 94 95 Oximetry 01/06/18 01/06/18 01/06/18 04:25 04:29 04:31 Temperature Pulse Rate 110 H 106 H 109 H Respiratory Rate Blood Pressure 110/58 Blood Pressure [Left] O2 Sat by Pulse 94 95 94 Oximetry 01/06/18 01/06/18 01/06/18 04:34 04:39 04:41 Temperature Pulse Rate 101 H 102 H 108 H Respiratory Rate Blood Pressure 115/66 Blood Pressure [Left] O2 Sat by Pulse 96 95 Oximetry 01/06/18 01/06/18 01/06/18 04:44 04:49 04:53 Temperature Pulse Rate 101 H 109 H 104 H Respiratory Rate Blood Pressure 119/73 Blood Pressure [Left] O2 Sat by Pulse 94 95 Oximetry 01/06/18 01/06/18 01/06/18 04:54 04:59 05:02 Temperature Pulse Rate 105 H 116 H 103 H Respiratory Rate Blood Pressure 126/75 Blood Pressure [Left] O2 Sat by Pulse 99 98 Oximetry 01/06/18 01/06/18 01/06/18 05:04 05:09 05:13 Temperature Pulse Rate 109 H 118 H 104 H Respiratory Rate Blood Pressure 128/77 Blood Pressure [Left] O2 Sat by Pulse 99 99 Oximetry 01/06/18 01/06/1801/06/18 05:14 05:19 05:21 Temperature Pulse Rate 112 H 105 H 118 H Respiratory Rate Blood Pressure 124/80 Blood Pressure [Left] O2 Sat by Pulse 99 99 Oximetry 01/06/18 01/06/18 01/06/18 05:24 05:29 05:34 Temperature Pulse Rate 105 H 103 H 114 H Respiratory Rate Blood Pressure 126/80 Blood Pressure [Left] O2 Sat by Pulse 98 98 98 Oximetry 01/06/18 01/06/18 01/06/18 05:39 05:42 05:44 Temperature Pulse Rate 121 H 122 H 121 H Respiratory Rate Blood Pressure 152/81 Blood Pressure [Left] O2 Sat by Pulse 99 99 Oximetry 01/06/18 01/06/18 01/06/18 05:49 05:52 05:54 Temperature Pulse Rate 109 H 105 H 108 H Respiratory Rate Blood Pressure 142/90 Blood Pressure [Left] O2 Sat by Pulse 98 98 Oximetry 01/06/18 01/06/18 01/06/18 05:59 06:01 06:04 Temperature Pulse Rate 111 H 105 H 108 H Respiratory Rate Blood Pressure 140/88 Blood Pressure [Left] O2 Sat by Pulse 98 98 Oximetry 01/06/18 01/06/18 01/06/18 06:09 06:11 06:14 Temperature Pulse Rate 111 H 98 H 108 H Respiratory Rate Blood Pressure 133/79 Blood Pressure [Left] O2 Sat by Pulse 98 97 Oximetry 01/06/18 01/06/18 01/06/18 06:19 06:22 06:24 Temperature Pulse Rate 111 H 100 H 101 H Respiratory Rate Blood Pressure 137/85 Blood Pressure [Left] O2 Sat by Pulse 98 98 Oximetry 01/06/18 01/06/18 01/06/18 06:29 06:31 06:34 Temperature Pulse Rate 100 H 93 H 99 H Respiratory Rate Blood Pressure 125/78 Blood Pressure [Left] O2 Sat by Pulse 98 98 Oximetry 01/06/18 01/06/18 01/06/18 06:39 06:41 06:44 Temperature Pulse Rate 101 H 96 H 99 H Respiratory Rate Blood Pressure 134/85 Blood Pressure [Left] O2 Sat by Pulse 97 97 Oximetry 01/06/18 01/06/18 01/06/18 06:49 06:51 06:54 Temperature Pulse Rate 99 H 104 H 106 H Respiratory Rate Blood Pressure 128/79 Blood Pressure [Left] O2 Sat by Pulse 99 99 Oximetry 01/06/18 01/06/18 01/06/18 06:59 07:01 07:04 Temperature Pulse Rate 102 H 96 H 99 H Respiratory Rate Blood Pressure 131/81 Blood Pressure [Left] O2 Sat by Pulse 98 98 Oximetry 01/06/18 01/06/18 01/06/18 07:09 07:13 07:14 Temperature Pulse Rate 117 H 110 H 108 H Respiratory Rate Blood Pressure 137/96 Blood Pressure [Left] O2 Sat by Pulse 96 97 Oximetry 01/06/18 01/06/18 01/06/18 07:19 07:21 07:24 Temperature Pulse Rate 135 H 121 H 108 H Respiratory Rate Blood Pressure 145/103 137/95 Blood Pressure [Left] O2 Sat by Pulse 97 97 Oximetry 01/06/18 01/06/18 01/06/18 07:29 07:31 07:33 Temperature Pulse Rate 103 H 101 H 109 H Respiratory Rate Blood Pressure 162/94 147/68 133/63 Blood Pressure [Left] O2 Sat by Pulse 96 Oximetry 01/06/18 01/06/18 01/06/18 07:34 07:35 07:37 Temperature Pulse Rate 105 H 113 H 107 H Respiratory Rate Blood Pressure 133/93 126/82 Blood Pressure [Left] O2 Sat by Pulse 98 Oximetry 01/06/18 01/06/18 01/06/18 07:38 07:39 07:41 Temperature Pulse Rate 89 99 H 110 H Respiratory Rate Blood Pressure 130/76 127/83 Blood Pressure [Left] O2 Sat by Pulse 97 Oximetry 01/06/18 01/06/18 01/06/18 07:43 07:44 07:45 Temperature 97.8 F Pulse Rate 55 L 107 H 102 H Respiratory 18 Rate Blood Pressure 118/79 131/88 Blood Pressure 126/82 [Left] O2 Sat by Pulse 98 Oximetry 01/06/18 01/06/18 01/06/18 07:49 07:51 07:52 Temperature Pulse Rate 114 H 105 H Respiratory Rate Blood Pressure 116/65 112/71 Blood Pressure [Left] O2 Sat by Pulse 97 Oximetry 01/06/18 01/06/18 01/06/18 07:54 07:56 07:58 Temperature Pulse Rate 107 H 106 H 113 H Respiratory Rate Blood Pressure 125/79 125/77 128/75 Blood Pressure [Left] O2 Sat by Pulse 97 Oximetry 01/06/18 01/06/18 01/06/18 07:59 08:00 08:02 Temperature Pulse Rate 112 H 103 H 100 H Respiratory Rate Blood Pressure 122/66 119/61 Blood Pressure [Left] O2 Sat by Pulse 97 Oximetry 01/06/18 01/06/18 01/06/18 08:04 08:06 08:08 Temperature Pulse Rate 89 98 H 97 H Respiratory Rate Blood Pressure 118/64 121/72 120/67 Blood Pressure [Left] O2 Sat by Pulse 98 Oximetry 01/06/18 01/06/18 01/06/18 08:09 08:10 08:12 Temperature Pulse Rate 94 H 93 H 100 H Respiratory Rate Blood Pressure 118/68 123/76 Blood Pressure [Left] O2 Sat by Pulse 97 Oximetry 01/06/18 01/06/18 01/06/18 08:14 08:16 08:18 Temperature Pulse Rate 102 H 94 H 106 H Respiratory Rate Blood Pressure 123/76 126/73 127/80 Blood Pressure [Left] O2 Sat by Pulse 98 Oximetry 01/06/18 01/06/18 01/06/18 08:19 08:21 08:22 Temperature Pulse Rate 104 H 109 H 100 H Respiratory Rate Blood Pressure 124/73 120/76 Blood Pressure [Left] O2 Sat by Pulse 97 Oximetry 01/06/18 01/06/18 01/06/18 08:24 08:26 08:29 Temperature Pulse Rate 102 H 96 H 93 H Respiratory Rate Blood Pressure 113/71 120/74 Blood Pressure [Left] O2 Sat by Pulse 99 98 Oximetry 01/06/18 01/06/18 01/06/18 08:34 08:39 08:42 Temperature Pulse Rate 103 H 111 H 106 H Respiratory Rate Blood Pressure 124/76 Blood Pressure [Left] O2 Sat by Pulse 99 97 Oximetry 01/06/18 01/06/18 01/06/18 08:44 08:49 08:54 Temperature Pulse Rate 105 H 96 H 93 H Respiratory Rate Blood Pressure Blood Pressure [Left] O2 Sat by Pulse 95 93 96 Oximetry 01/06/18 01/06/18 01/06/18 08:57 08:59 09:04 Temperature Pulse Rate 93 H 93 H 92 H Respiratory Rate Blood Pressure 129/62 Blood Pressure [Left] O2 Sat by Pulse 95 92 Oximetry 01/06/18 01/06/18 01/06/18 09:09 09:12 09:14 Temperature Pulse Rate 90 100 H 98 H Respiratory Rate Blood Pressure 116/59 Blood Pressure [Left] O2 Sat by Pulse 94 95 Oximetry 01/06/18 01/06/18 01/06/18 09:19 09:24 09:27 Temperature Pulse Rate 98 H 97 H 104 H Respiratory Rate Blood Pressure 123/73 Blood Pressure [Left] O2 Sat by Pulse 94 95 Oximetry 01/06/18 01/06/18 01/06/18 09:29 09:34 09:39 Temperature Pulse Rate 82 104 H 89 Respiratory Rate Blood Pressure Blood Pressure [Left] O2 Sat by Pulse 99 99 100 Oximetry 01/06/18 01/06/18 01/06/18 09:42 09:44 09:49 Temperature Pulse Rate 88 83 87 Respiratory Rate Blood Pressure 121/73 Blood Pressure [Left] O2 Sat by Pulse 100 99 Oximetry 01/06/18 01/06/18 01/06/18 09:54 09:58 09:59 Temperature Pulse Rate 91 H 92 H 93 H Respiratory Rate Blood Pressure 119/75 Blood Pressure [Left] O2 Sat by Pulse 100 99 Oximetry 01/06/18 01/06/18 01/06/18 10:04 10:09 10:12 Temperature Pulse Rate 90 93 H 83 Respiratory Rate Blood Pressure 138/90 Blood Pressure [Left] O2 Sat by Pulse 99 99 Oximetry 01/06/18 01/06/18 01/06/18 10:14 10:19 10:24 Temperature Pulse Rate 81 78 80 Respiratory Rate Blood Pressure Blood Pressure [Left] O2 Sat by Pulse 99 99 99 Oximetry 01/06/18 01/06/18 01/06/18 10:27 10:29 10:34 Temperature Pulse Rate 76 91 H 85 Respiratory Rate Blood Pressure 141/90 Blood Pressure [Left] O2 Sat by Pulse 99 99 Oximetry 01/06/18 01/06/18 01/06/18 10:39 10:42 10:44 Temperature Pulse Rate 95 H 92 H 90 Respiratory Rate Blood Pressure 144/90 Blood Pressure [Left] O2 Sat by Pulse 99 99 Oximetry 01/06/18 01/06/18 01/06/18 10:49 10:54 10:57 Temperature Pulse Rate 85 77 85 Respiratory Rate Blood Pressure 133/89 Blood Pressure [Left] O2 Sat by Pulse 99 99 Oximetry 01/06/18 01/06/18 01/06/18 10:59 11:04 11:09 Temperature Pulse Rate 75 96 H 79 Respiratory Rate Blood Pressure Blood Pressure [Left] O2 Sat by Pulse 99 99 99 Oximetry 01/06/18 01/06/18 01/06/18 11:12 11:14 11:19 Temperature Pulse Rate 77 84 78 Respiratory Rate Blood Pressure 137/92 Blood Pressure [Left] O2 Sat by Pulse 99 99 Oximetry 01/06/18 01/06/18 01/06/18 11:24 11:27 11:29 Temperature Pulse Rate 79 78 71 Respiratory Rate Blood Pressure 132/87 Blood Pressure [Left] O2 Sat by Pulse 99 99 Oximetry 01/06/18 01/06/18 01/06/18 11:34 11:39 11:42 Temperature Pulse Rate 73 92 H 85 Respiratory Rate Blood Pressure 122/83 Blood Pressure [Left] O2 Sat by Pulse 99 99 Oximetry 01/06/18 01/06/18 01/06/18 11:44 11:49 11:54 Temperature Pulse Rate 87 83 85 Respiratory Rate Blood Pressure Blood Pressure [Left] O2 Sat by Pulse 99 99 99 Oximetry 01/06/18 01/06/18 01/06/18 11:57 11:59 12:04 Temperature Pulse Rate 76 97 H 89 Respiratory Rate Blood Pressure 117/71 Blood Pressure [Left] O2 Sat by Pulse 99 99 Oximetry 01/06/18 01/06/18 01/06/18 12:09 12:13 12:14 Temperature Pulse Rate 98 H 82 96 H Respiratory Rate Blood Pressure 145/91 Blood Pressure [Left] O2 Sat by Pulse 99 99 Oximetry 01/06/18 01/06/18 01/06/18 12:19 12:25 12:27 Temperature Pulse Rate 83 93 H 83 Respiratory Rate Blood Pressure 138/92 Blood Pressure [Left] O2 Sat by Pulse 99 99 Oximetry 01/06/18 01/06/18 01/06/18 12:29 12:34 12:40 Temperature Pulse Rate 79 92 H 111 H Respiratory Rate Blood Pressure Blood Pressure [Left] O2 Sat by Pulse 99 99 98 Oximetry 01/06/18 01/06/18 01/06/18 12:42 12:44 12:49 Temperature Pulse Rate 95 H 97 H 96 H Respiratory Rate Blood Pressure 143/101 Blood Pressure [Left] O2 Sat by Pulse 100 99 Oximetry 01/06/18 01/06/18 01/06/18 12:54 12:57 12:59 Temperature Pulse Rate 82 96 H 97 H Respiratory Rate Blood Pressure 141/97 Blood Pressure [Left] O2 Sat by Pulse 99 99 Oximetry 01/06/18 01/06/18 01/06/18 13:04 13:09 13:12 Temperature Pulse Rate 104 H 105 H 94 H Respiratory Rate Blood Pressure 140/107 Blood Pressure [Left] O2 Sat by Pulse 99 98 Oximetry 01/06/18 01/06/18 01/06/18 13:14 13:20 13:24 Temperature Pulse Rate 87 93 H 95 H Respiratory Rate Blood Pressure Blood Pressure [Left] O2 Sat by Pulse 99 99 99 Oximetry 01/06/18 01/06/18 01/06/18 13:27 13:29 13:31 Temperature 98.3 F Pulse Rate 86 101 H 108 H Respiratory 18 Rate Blood Pressure 144/97 Blood Pressure 144/96 [Left] O2 Sat by Pulse 99 96 Oximetry 01/06/18 01/06/18 01/06/18 13:34 13:35 13:39 Temperature Pulse Rate 109 H 106 H 111 H Respiratory Rate Blood Pressure 144/96 Blood Pressure [Left] O2 Sat by Pulse 96 96 Oximetry 01/06/18 01/06/18 01/06/18 13:42 13:46 13:47 Temperature Pulse Rate 98 H 106 H 92 H Respiratory Rate Blood Pressure 129/82 148/98 133/79 Blood Pressure [Left] O2 Sat by Pulse Oximetry 01/06/18 01/06/18 01/06/18 13:49 13:51 13:53 Temperature Pulse Rate 83 86 86 Respiratory Rate Blood Pressure 133/78 135/79 127/79 Blood Pressure [Left] O2 Sat by Pulse Oximetry 01/06/18 01/06/18 01/06/18 13:54 13:58 13:59 Temperature Pulse Rate 83 79 87 Respiratory Rate Blood Pressure 128/79 129/79 Blood Pressure [Left] O2 Sat by Pulse 100 100 Oximetry 01/06/18 01/06/18 01/06/18 14:03 14:04 14:08 Temperature Pulse Rate 88 88 84 Respiratory Rate Blood Pressure 127/83 Blood Pressure [Left] O2 Sat by Pulse 100 100 Oximetry 01/06/18 01/06/18 01/06/18 14:09 14:14 14:19 Temperature Pulse Rate 97 H 90 94 H Respiratory Rate Blood Pressure 129/86 130/84 128/82 Blood Pressure [Left] O2 Sat by Pulse 100 100 Oximetry 01/06/18 01/06/18 01/06/18 14:23 14:25 14:29 Temperature Pulse Rate 95 H 86 96 H Respiratory Rate Blood Pressure 134/89 145/98 Blood Pressure [Left] O2 Sat by Pulse 100 100 Oximetry 01/06/18 01/06/18 01/06/18 14:34 14:38 14:39 Temperature Pulse Rate 93 H 84 93 H Respiratory Rate Blood Pressure 135/94 138/90 Blood Pressure [Left] O2 Sat by Pulse 100 100 Oximetry 01/06/18 01/06/18 01/06/18 14:44 14:48 14:50 Temperature Pulse Rate 118 H 105 H 104 H Respiratory Rate Blood Pressure 158/89 146/88 Blood Pressure [Left] O2 Sat by Pulse 100 100 Oximetry 01/06/18 01/06/18 01/06/18 14:54 14:56 14:59 Temperature Pulse Rate 99 H 90 106 H Respiratory Rate Blood Pressure 121/69 Blood Pressure [Left] O2 Sat by Pulse 100 98 Oximetry 01/06/18 15:00 Temperature Pulse Rate 96 H Respiratory Rate Blood Pressure 119/79 Blood Pressure [Left] O2 Sat by Pulse Oximetry - Exam Breasts: deferred Cardiovascular: Regular rate Lungs: Normal air movement Abdomen: Present: normal appearance, soft. Absent: distention, tenderness Uterus: Present: normal, other (pt denies epigastric pain at this time) FHR: auscultation normal, category 1 Uterine Contraction Monitor Mode: Internal Cervical Dilatation: 7.5 Cervical Effacement Percentage: 90 station: 0 Uterine Contraction Pattern: Regular Uterine Tone Measurement Phase: Resting Uterine Contraction Intensity: Moderate Extremities: edema Deep Tendon Reflex Grade: Normal +2 - Labs Labs: Abnormal Labs 01/05/18 01/05/18 01/05/18 23:35 23:35 23:35 WBC 18.8 H MCH 26 L Creatinine 0.5 L Magnesium AST 122 H Lactate Dehydrogenase 514 H Urine pH 01/06/18 01/06/18 00:00 07:40 WBC MCH Creatinine Magnesium 3.90 H AST Lactate Dehydrogenase Urine pH 8.0 H Laboratory Results - last 24 hr 01/05/18 01/05/18 01/05/18 23:35 23:35 23:35 WBC 18.8 H RBC 4.40 Hgb 11.6 Hct 37.0 MCV 84 MCH 26 L MCHC 31 RDW 15.1 Plt Count 207 Creatinine 0.5 L Estimated GFR > 60 Uric Acid 7.3 Magnesium AST 122 H ALT 55 Lactate Dehydrogenase Amylase 46 Lipase 19 Urine Color Urine Turbidity Urine pH Ur Specific [place] Urine Protein Urine Glucose (UA) Urine Ketones Urine Blood Urine Nitrite Urine Bilirubin Urine Urobilinogen Ur Leukocyte Esterase Urine WBC (Auto) Urine RBC (Auto) U Epithel Cells (Auto) Urine Bacteria (Auto) Urine Mucus RPR Blood Type Antibody Screen 01/05/18 01/06/18 01/06/18 23:35 00:00 07:39 WBC RBC Hgb Hct MCV MCH MCHC RDW Plt Count Creatinine Estimated GFR Uric Acid Magnesium AST ALT Lactate Dehydrogenase 514 H Amylase Lipase Urine Color Yellow Urine Turbidity Clear Urine pH 8.0 H Ur Specific [place] 1.017 Urine Protein >500 Urine Glucose (UA) Neg Urine Ketones Neg Urine Blood Neg Urine Nitrite Neg Urine Bilirubin Neg Urine Urobilinogen < 2.0 Ur Leukocyte Esterase Mod Urine WBC (Auto) 4.0 Urine RBC (Auto) 5.0 U Epithel Cells (Auto) 9.0 Urine Bacteria (Auto) 1+ Urine Mucus Few RPR Nonreactive Blood Type Antibody Screen 01/06/18 01/06/18 07:40 07:40 WBC RBC Hgb Hct MCV MCH MCHC RDW Plt Count Creatinine Estimated GFR Uric Acid Magnesium 3.90 H AST ALT Lactate Dehydrogenase Amylase Lipase Urine Color Urine Turbidity Urine pH Ur Specific [place] Urine Protein Urine Glucose (UA) Urine Ketones Urine Blood Urine Nitrite Urine Bilirubin Urine Urobilinogen Ur Leukocyte Esterase Urine WBC (Auto) Urine RBC (Auto) U Epithel Cells (Auto) Urine Bacteria (Auto) Urine Mucus RPR Blood Type A POSITIVE Antibody Screen Negative
[2018-01-06] MEDS ORDERED: TUCKS PAD TP PRN (16:04)
[2018-01-06] MEDS ORDERED: PHENERGAN PO PRN (16:04)
[2018-01-06] MEDS ORDERED: TYLENOL PO PRN (16:04)
[2018-01-06] MEDS ORDERED: MILK OF MAGNESIA PO PRN (16:04)
[2018-01-06] MEDS ORDERED: LANSINOH TP PRN (16:04)
[2018-01-06] MEDS ORDERED: BENADRYL PO PRN (16:04)
[2018-01-06] MEDS ORDERED: DULCOLAX PR PRN (16:04)
--- NOTE | 2018-01-06 16:28 | Procedure Note ---
OB Delivery Note - Delivery Date of Delivery: 01/06/18 [employer] Mounted: PRAVIN JJ Estimated blood loss: 300cc - Vaginal Delivery presentation: vertex Delivery position: OA Intrapartum events: abruption (appeared to be a partial abruption immediately at time of delivery), preeclampsia (MGSO4 prior to delivery) Delivery induction: oxytocin Delivery augmentation: pitocin Delivery monitor: internal FHT, internal uterine Route of delivery: Delivery placenta: spontaneous Delivery cord: nuchal cord Episiotomy: none Delivery laceration: none Anesthesia: epidural Delivery comments: NICU called to room Baby floppy immediately after delivery. live born male over intact perineum. Appeared to have placenta abruptio @ time of delivery CAN X 1 delivered through. NICU in room before 1 min of age. Resuscitation started. Cord blood obtained. Placenta delivered immediately after , large clot noted Placenta to pathology. 7/8, EBL 300, Wgt 5pounds. Mom and baby remain LDR Baby to breast Nursing well. Parker cath replaced Will continue MGSO4 @ 1gm/hr X 24 hours. PIH labs to be repeated with Mag level @ 0300. - Infant A at 1 minute: 7 at 5 minutes: 8 Gender: Male (5-0)
[2018-01-06] MEDS ORDERED: SODIUM CHLORIDE FLUSH SYRINGE 10 ML IV NR (17:00)
[2018-01-06] MEDS: ZOFRAN IV PRN (17:16)
[2018-01-06] MEDS: NORCO 5/325 PO PRN ×2 (17:25→23:45)
[2018-01-07 03:51] LABS: Hematocrit 27.1 % (30.3-42.9); Hemoglobin 8.8 gm/dl (10.1-14.3); Mean Corpuscular HGB Conc 32 % (30-34); Mean Corpuscular Hemoglobin 27 pg (28-32); Mean Corpuscular Volume 83 fl (79-97); Red Blood Count 3.26 M/mm3 (3.65-5.03); Red Cell Distribution Width 15.4 % (13.2-15.2)
[2018-01-07 03:59] LABS: Bilirubin,Urine NEG (Negative); Blood,Urine MOD (Negative); Color,Urine Yellow (Yellow); Hyaline Casts,Urine 5 /LPF; Mucus,Urine 1+ /HPF; Urobilinogen,Urine < 2.0 mg/dL (<2.0)
[2018-01-07 04:12] LABS: Alanine Aminotransferase 67 units/L (7-56)
[2018-01-07 04:56] LABS: Platelet Count 99 K/mm3 (140-440)
[2018-01-07] MEDS ORDERED: PITOCin/NS 20 UNIT/1000ML DRIP 20 UNITS/1,000 ML BAG IV SCH (05:00)
--- NOTE | 2018-01-07 06:48 | Progress Note ---
Assessment and Plan - Patient Problems (1) Pre-eclampsia Onset Date: ~01/06/18 Current Visit: Yes Status: Acute Qualifiers: Trimester: third trimester Qualified Code(s): O14.93 - Unspecified pre- eclampsia, third trimester Plan to address problem: Pt resting No c/o RENTERIA, blurred vision, chest pain voiced. BP 130-120/70 FF below umb lochia small Perineum intact. H&H 03/22 drop r/t blood loss from delivery. Plt Ct 99. Abdomen soft non tender. Pt states the epigastric pain has resolved.Urine output >1000 since midnight. P: continue MGSO4 until 1530 Continue pathway. Advance as tolerated. Reported to Will consult with Dr.Youngblood bashir ALVAREZ (2) Spontaneous vaginal delivery Onset Date: ~01/06/18 Current Visit: No Status: Acute Subjective - Subjective Date of service: 01/07/18 (pt w/o complaint this AM) Principal diagnosis: Day #1 s/p vaginal delivery; PreE; MGSO4 continues Patient reports: voiding normally (clear urine now nolonger blood tinged) [place]: doing well Objective - Vital Signs Latest vital signs: Vital Signs Temp Pulse Resp BP BP Pulse Ox 01/07/18 06:10 98.0 F 72 18 124/83 01/07/18 03:47 98.0 F 87 18 116/72 01/07/18 01:45 98.4 F 98 H 18 136/73 01/06/18 23:45 18 01/06/18 23:18 98.0 F 92 H 18 127/78 01/06/18 21:35 98.4 F 114 H 18 133/81 01/06/18 17:57 101 H 97 01/06/18 17:52 105 H 95 01/06/18 17:50 93 H 127/79 01/06/18 17:47 111 H 97 01/06/18 17:42 96 H 96 01/06/18 17:37 110 H 96 01/06/18 17:35 98 H 122/75 01/06/18 17:32 117 H 96 01/06/18 17:27 107 H 96 01/06/18 17:22 102 H 96 01/06/18 17:20 99 H 131/81 01/06/18 17:17 94 H 95 06/13/18 17:12 91 H 96 0618 17:07 112 H 95 06//18 17:05 110 H 129/84 0618 17:03 120 H 89 06/18 17:02 103 H 92 06/18 16:57 112 H 93 01/06/18 16:52 115 H 94 06//18 16:51 114 H 128/85 //18 16:47 114 H 94 06//18 16:42 116 H 97 18 16:37 111 H 96 06/18 16:35 121 H 138/87 0618 16:32 122 H 18 138/87 97 //18 16:27 118 H 95 18 16:22 114 H 96 18 16:20 107 H 139/93 18 16:17 99 H 96 01/06/18 16:15 98.4 F 16 135/85 06//18 16:14 97 H 135/85 18 16:12 99 H 96 18 16:07 105 H 97 18 16:05 107 H 140/98 0618 16:02 107 H 18 140/98 97 06//18 15:57 96 H 96 18 15:52 124 H 97 0618 15:50 104 H 135/99 18 15:47 98.8 F 104 H 18 135/99 97 01/06/18 15:35 131 H 134/94 18 15:29 104 H 99 01/06/18 15:24 102 H 97 06//18 15:20 96 H 139/88 01/06/18 15:18 103 H 98 06/13/18 15:14 97 H 99 06//18 15:08 100 H 100 06/13/18 15:05 100 H 133/67 06/18 15:04 99 H 128/77 100 06//18 15:00 96 H 119/79 18 14:59 106 H 98 06//18 14:56 90 121/69 06//18 14:54 99 H 100 06//18 14:50 104 H 146/88 06//18 14:48 105 H 100 /18 14:44 118 H 158/89 100 18 14:39 93 H 138/90 18 14:38 84 100 18 14:34 93 H 135/94 100 06/18 14:29 96 H 145/98 100 18 14:25 86 134/89 18 14:23 95 H 100 18 14:19 94 H 128/82 100 18 14:14 90 130/84 100 18 14:09 97 H 129/86 01/06/18 14:08 84 100 01/06/18 14:04 88 127/83 01/06/18 14:03 88 100 18 13:59 87 129/79 18 13:58 79 100 18 13:54 83 128/79 100 18 13:53 86 127/79 01/06/18 13:51 86 135/79 01/06/18 13:49 83 133/78 01/06/18 13:47 92 H 133/79 18 13:46 106 H 148/98 18 13:42 98 H 129/82 18 13:39 111 H 96 01/06/18 13:35 106 H 144/96 18 13:34 109 H 96 18 13:31 98.3 F 108 H 18 144/96 96 18 13:29 101 H 99 18 13:27 86 144/97 01/06/18 13:24 95 H 99 /18 13:20 93 H 99 18 13:14 87 99 06/18 13:12 94 H 140/107 18 13:09 105 H 98 18 13:04 104 H 99 18 12:59 97 H 99 18 12:57 96 H 141/97 18 12:54 82 99 0618 12:49 96 H 99 18 12:44 97 H 100 18 12:42 95 H 143/101 01/06/18 12:40 111 H 98 06//18 12:34 92 H 99 06//18 12:29 79 99 06/13/18 12:27 83 138/92 06//18 12:25 93 H 99 06//18 12:19 83 99 06//18 12:14 96 H 99 //18 12:13 82 145/91 06/18 12:09 98 H 99 06/18 12:04 89 99 0618 11:59 97 H 99 01/06/18 11:57 76 117/71 06/18 11:54 85 99 //18 11:49 83 99 //18 11:44 87 99 06//18 11:42 85 122/83 18 11:39 92 H 99 01/06/18 11:34 73 99 //18 11:29 71 99 18 11:27 78 132/87 01/06/18 11:24 79 99 18 11:19 78 99 18 11:14 84 99 01/06/18 11:12 77 137/92 18 11:09 79 99 0618 11:04 96 H 99 18 10:59 75 99 //18 10:57 85 133/89 18 10:54 77 99 01/06/18 10:49 85 99 01/06/18 10:44 90 99 01/06/18 10:42 92 H 144/90 18 10:39 95 H 99 18 10:34 85 99 /18 10:29 91 H 99 01/06/18 10:27 76 141/90 18 10:24 80 99 06//18 10:19 78 99 06//18 10:14 81 99 06//18 10:12 83 138/90 18 10:09 93 H 99 01/06/18 10:04 90 99 18 09:59 93 H 99 18 09:58 92 H 119/75 18 09:54 91 H 100 18 09:49 87 99 18 09:44 83 100 18 09:42 88 121/73 06/18 09:39 89 100 18 09:34 104 H 99 18 09:29 82 99 18 09:27 104 H 123/73 18 09:24 97 H 95 18 09:19 98 H 94 01/06/18 09:14 98 H 95 01/06/18 09:12 100 H 116/59 01/06/18 09:09 90 94 01/06/18 09:04 92 H 92 01/06/18 08:59 93 H 95 01/06/18 08:57 93 H 129/62 01/06/18 08:54 93 H 96 01/06/18 08:49 96 H 93 01/06/18 08:44 105 H 95 01/06/18 08:42 106 H 124/76 01/06/18 08:39 111 H 97 01/06/18 08:34 103 H 99 01/06/18 08:29 93 H 98 01/06/18 08:26 96 H 120/74 01/06/18 08:24 102 H 113/71 99 01/06/18 08:22 100 H 120/76 01/06/18 08:21 109 H 124/73 01/06/18 08:19 104 H 97 01/06/18 08:18 106 H 127/80 01/06/18 08:16 94 H 126/73 01/06/18 08:14 102 H 123/76 98 18 08:12 100 H 123/76 01/06/18 08:10 93 H 118/68 01/06/18 08:09 94 H 97 01/06/18 08:08 97 H 120/67 01/06/18 08:06 98 H 121/72 01/06/18 08:04 89 118/64 98 01/06/18 08:02 100 H 119/61 01/06/18 08:00 103 H 122/66 01/06/18 07:59 112 H 97 01/06/18 07:58 113 H 128/75 01/06/18 07:56 106 H 125/77 01/06/18 07:54 107 H 125/79 97 01/06/18 07:52 112/71 01/06/18 07:51 105 H 116/65 06/13/18 07:49 114 H 97 01/06/18 07:45 102 H 131/88 01/06/18 07:44 97.8 F 107 H 18 126/82 98 01/06/18 07:43 55 L 118/79 01/06/18 07:41 110 H 127/83 01/06/18 07:39 99 H 97 01/06/18 07:38 89 130/76 01/06/18 07:37 107 H 126/82 01/06/18 07:35 113 H 133/93 01/06/18 07:34 105 H 98 01/06/18 07:33 109 H 133/63 01/06/18 07:31 101 H 147/68 01/06/18 07:29 103 H 162/94 96 01/06/18 07:24 108 H 137/95 97 01/06/18 07:21 121 H 145/103 01/06/18 07:19 135 H 97 01/06/18 07:14 108 H 97 01/06/18 07:13 110 H 137/96 01/06/18 07:09 117 H 96 01/06/18 07:04 99 H 98 01/06/18 07:01 96 H 131/81 01/06/18 06:59 102 H 98 01/06/18 06:54 106 H 99 01/06/18 06:51 104 H 128/79 01/06/18 06:49 99 H 99 01/06/18 06:44 99 H 97 Intake and Output 01/06/18 01/06/18 01/07/18 14:59 22:59 06:59 Intake Total 952 240 Output Total 1900 1150 700 Balance -948 -1150 -460 Intake: IV 952 Lactated Ringers 1,000 ml 950 @ 125 mls/hr IV DIRECT JEAN Rx#:[id number] PITOCin/NS 30 UNIT/500ML 2 30 units In 500 ml @ 1 MILLIUNITS/MIN 1 mls/hr IV TITR JEAN Rx#:[id number] Oral 240 Output: Urine 1900 1150 700 Indwelling Catheter 1900 1150 700 Other: Total, Intake Amount 240 Total, Output Amount 1300 400 400 # Voids Indwelling Catheter 1 350 - Exam Breasts: Present: normal Cardiovascular: Present: Regular rate Lungs: Present: Clear to auscultation, Normal air movement Abdomen: Present: normal appearance, soft, normal bowel sounds Vulva: both: normal Uterus: Present: normal, fundal height below umbilicus Extremities: Present: edema (SCD on) Deep Tendon Reflex Grade: Normal +2 - Labs Labs: Abnormal lab results 01/06/18 01/06/18 01/06/18 Range/Units 07:40 15:15 21:21 WBC (4.5-11.0) K/mm3 RBC (3.65-5.03) M/mm3 Hgb (10.1-14.3) gm/dl Hct (30.3-42.9) % MCH (28-32) pg RDW (13.2-15.2) % Plt Count (140-440) K/mm3 Creatinine (0.7-1.2) mg/dL Magnesium 3.90 H 4.30 H 4.20 H (1.7-2.3) mg/dL AST (5-40) units/L ALT (7-56) units/L Lactate Dehydrogenase (91-180) units/L Urine WBC (Auto) (0.0-6.0) /HPF 01/07/18 01/07/18 01/07/18 Range/Units 03:00 03:17 03:17 WBC 11.8 H (4.5-11.0) K/mm3 RBC 3.26 L (3.65-5.03) M/mm3 Hgb 8.8 L (10.1-14.3) gm/dl Hct 27.1 L D (30.3-42.9) % MCH 27 L (28-32) pg RDW 15.4 H (13.2-15.2) % Plt Count 99 L (140-440) K/mm3 Creatinine 0.5 L (0.7-1.2) mg/dL Magnesium 4.20 H (1.7-2.3) mg/dL AST 83 H (5-40) units/L ALT 67 H (7-56) units/L Lactate Dehydrogenase 501 H (91-180) units/L Urine WBC (Auto) 7.0 H (0.0-6.0) /HPF
[2018-01-07] MEDS: MOTRIN PO SCH ×3 (08:30→18:02)
[2018-01-07] MEDS: NORCO 5/325 PO PRN (12:36)
--- NOTE | 2018-01-07 13:37 | Event Note ---
Date: 01/07/18 Received call from RN, patient c/o RENTERIA normotensive will continue MgSO4 for 24 hr PP. Will obtain anesthesia consult r/o spinal RENTERIA
[2018-01-07] MEDS ORDERED: BOOSTRIX IM ONE (16:04)
[2018-01-07] MEDS ORDERED: M-M-R II VACCINE SUB-Q ONE (16:04)
[2018-01-07] MEDS: ZOFRAN IV PRN (16:22)
--- NOTE | 2018-01-07 17:12 | Progress Note ---
Subjective Date of service: 01/07/18 Principal diagnosis: Day #1 s/p vaginal delivery; PreE; MGSO4 continues Interval history: 13:00 1st POD after normal vaginal delivery Patient is in the bed, continued Mg2SO4 infusion for pre-ecclampsia. Patient complains to frontal headache the same intensity with the bed flat or elevated head. No neck tenderness or any other neurological deficit. No evidence for post -puncture headache. Needs to be reevaluated later Objective - Constitutional Vitals: Vital Signs - 12hr 01/07/18 01/07/18 01/07/18 06:10 08:30 08:35 Temperature 98.0 F 98.2 F Pulse Rate 72 97 H Respiratory 18 18 18 Rate Blood Pressure 124/83 119/85 [Left] 01/07/18 01/07/18 01/07/18 10:35 12:36 12:48 Temperature 97.8 F Pulse Rate 95 H 75 Respiratory 18 18 18 Rate Blood Pressure 121/80 110/58 [Left] 01/07/18 14:35 Temperature 98.2 F Pulse Rate 103 H Respiratory 18 Rate Blood Pressure 126/89 [Left] - Labs CBC & Chem 7: 01/07/18 03:17 01/07/18 03:17 Labs: Abnormal lab results 01/06/18 01/07/18 01/07/18 Range/Units 21:21 03:00 03:17 WBC (4.5-11.0) K/mm3 RBC (3.65-5.03) M/mm3 Hgb (10.1-14.3) gm/dl Hct (30.3-42.9) % MCH (28-32) pg RDW (13.2-15.2) % Plt Count (140-440) K/mm3 Creatinine 0.5 L (0.7-1.2) mg/dL Magnesium 4.20 H 4.20 H (1.7-2.3) mg/dL AST 83 H (5-40) units/L ALT 67 H (7-56) units/L Lactate Dehydrogenase 501 H (91-180) units/L Urine WBC (Auto) 7.0 H (0.0-6.0) /HPF 01/07/18 01/07/18 Range/Units 03:17 11:46 WBC 11.8 H (4.5-11.0) K/mm3 RBC 3.26 L (3.65-5.03) M/mm3 Hgb 8.8 L (10.1-14.3) gm/dl Hct 27.1 L D (30.3-42.9) % MCH 27 L (28-32) pg RDW 15.4 H (13.2-15.2) % Plt Count 99 L (140-440) K/mm3 Creatinine (0.7-1.2) mg/dL Magnesium 4.10 H (1.7-2.3) mg/dL AST (5-40) units/L ALT (7-56) units/L Lactate Dehydrogenase (91-180) units/L Urine WBC (Auto) (0.0-6.0) /HPF
[2018-01-08] MEDS: MOTRIN PO SCH ×2 (06:00)
--- NOTE | 2018-01-08 08:40 | Discharge Summary ---
Providers - Providers Date of Admission: 01/06/18 02:30 Date of discharge: 01/08/18 (desires d/c home) Attending physician: SIXTO DAMON Primary care physician: SIXTO DAMON Hospitalization Reason for admission: Pre-e IOL Condition: Good Pertinent studies: H&H 8.8/27.1, AST 88, ALT 67, Plt 99 Procedures: Vaginal Hospital course: vaginal and period complicated by pre-e Disposition: DC-01 TO HOME OR SELFCARE - Discharge Diagnoses (1) Pre-eclampsia Status: Acute Qualifiers: Trimester: third trimester Qualified Code(s): O14.93 - Unspecified pre- eclampsia, third trimester (2) Elevated LFTs Status: Acute Core Measure Documentation - Palliative Care Palliative Care/ Comfort Measures: Not Applicable - Core Measures Any of the following diagnoses?: none Exam - Constitutional Vitals: Temp Pulse Resp BP Pulse Ox 98.5 F 79 18 129/76 97 01/08/18 00:40 01/08/18 00:40 01/08/18 00:40 01/08/18 00:40 01/06/18 17:57 General appearance: Present: no acute distress, well-nourished - EENT Eyes: Present: PERRL ENT: hearing intact, clear oral mucosa - Neck Neck: Present: supple, normal ROM - Respiratory Respiratory effort: normal Respiratory: bilateral: CTA - Cardiovascular Heart Sounds: Present: S1 & S2. Absent: rub, click - Extremities Extremities: pulses symmetrical, No edema Peripheral Pulses: within normal limits - Abdominal General gastrointestinal: Present: soft, non-tender, non-distended, normal bowel sounds Female genitourinary: Present: normal - Integumentary Integumentary: Present: clear, warm, dry - Musculoskeletal Musculoskeletal: gait normal, strength equal bilaterally - Psychiatric Psychiatric: appropriate mood/affect, intact judgment & insight - Neurologic Neurologic: CNII-XII intact, moves all extremities - Additional findings Additional findings: Pt denies RENTERIA, visual changes, epigastric pain or leg pain. Lochia scant, fundus firm. v/s 110-136.50-80's. H&H stable. Plan Activity: no restrictions Diet: regular Follow up with: SIXTO DAMON MD [Primary Care Provider] - 7 Days (Congratulations! Please call [phone] to schedule your son's circumcision and your blood pressure check in 1 week. Bring MORENITA cream to your son's appointment and await further teaching. Call for any complaints of headache, chest pain or vision changes.) Prescriptions: Lidocain2.5%/Prilocai2.5% [Emla] 5 gm TP PRN #1 tube
[2018-01-08 17:02] VITALS: BP 124/78
== END 2018-01-08 18:03 | disposition home or self-care (01) | DRG 774 ==
LOC: TRG 23:04 → LD 01-06 02:21 → TRG 01-06 02:29 → LD 01-06 02:30 → OB 01-06 18:54
PROVIDERS: ADMIT Obstetrics & Gynecology; ATTEND Obstetrics & Gynecology
PROC: 10E0XZZ Delivery of Products of Conception, External Approach (ICD-10-PCS; principal; 2018-01-06)
PROC: 3E0R3BZ Introduction of Anesthetic Agent into Spinal Canal, Percutaneous Approach (ICD-10-PCS; 2018-01-06)
PROC: 00HU33Z Insertion of Infusion Device into Spinal Canal, Percutaneous Approach (ICD-10-PCS; 2018-01-06)
PROC: 3E033VJ Introduction of Other Hormone into Peripheral Vein, Percutaneous Approach (ICD-10-PCS; 2018-01-06)
PROC: 3E0234Z Introduction of Serum, Toxoid and Vaccine into Muscle, Percutaneous Approach (ICD-10-PCS; 2018-01-07)
DX: O14.94 Unspecified pre-eclampsia, complicating childbirth (principal); Z3A.38 38 weeks gestation of pregnancy; Z37.0 Single live birth; O45.93 Premature separation of placenta, unspecified, third trimester; O69.81X0 Labor and delivery complicated by cord around neck, without compression, not applicable or unspecified; Z23 Encounter for immunization
CPT/HCPCS: 36415; 81001; 82150; 82565; 83615; 83690; 83735; 84450; 84460; 84550; 85027; 86592; 86850; 86900; 86901; 88307; J0595; J2405; J2590; J3475; J7120